=== PATIENT | female | born 1925 | race Caucasian/White ===

== ENCOUNTER → 2016-09-17 | Outpatient (CLI) | payer BC ==
[~2016-09-17] MED LIST: AMLO-110 PO; ATEN50TA8 PO; B-COTAB69 PO; CALC500C70 PO; IBUP-1459 PO; LPT/40 PO; MULT-190 PO; MULT-506 PO
--- NOTE | 2016-09-17 11:30 | DIAGNOSTIC IMAGING REPORT ---
LEG LENGTH STUDY (WHOLE LEG) CLINICAL HISTORY: LEG LENGTH DISCREPANCY COMPARISON STUDY: None. FINDINGS: Bilateral lower extremities measured from the superior aspect of the acetabula to the tibial plafonds measure approximately 74 cm. There is mild medial angulation of the left lower leg and comparison to the right. This is primarily due to the severe cartilage space narrowing within the medial compartment of the left knee. IMPRESSION: Bilateral lower extremities are nearly symmetric measuring approximately 74 cm in length. Electronically signed by: Ashok Dewey M.D. 09/17/2016 11:29 AM Dictated Date/Time: 09/17/2016 11:25 AM
== END | disposition home or self-care (01) ==
LOC: C.RADBC 10:15
PROVIDERS: ATTEND Physician Assistant Medical
DX: M21.70 Unequal limb length (acquired), unspecified site (principal)